=== PATIENT | female | born 1995 | race Two or more races ===

== ENCOUNTER 2019-06-27 12:13 | Emergency (ER) | payer MEDICAID, OTHER ==
[~2019-06-27] VITALS: Ht 160 cm; Wt 109.0 kg
[2019-06-27 12:17] VITALS: BP 116/58
--- NOTE | 2019-06-27 12:22 | NUR ---
PT HERE FOR LEFT HAND PAIN AROUND THUMB. PT REPORTS THAT SHE LIFTED UP HER DAUGHTER AND THEN THE PAIN STARTED. PT BIB EMS. VSS.
--- NOTE | 2019-06-27 12:40 | NUR ---
PT ABLE TO USE RIGHT HAND WITHOUT DIFFICULTY TO USE CELLPHONE.
--- NOTE | 2019-06-27 13:03 | NUR ---
PT PORVIDED WITH WARM BLANKET.
--- NOTE | 2019-06-27 13:09 | NUR ---
Patient/Caregiver given discharge instructions and they have confirmed that they understand the instructions. Patient ambulatory with steady gait.
== END 2019-06-27 13:21 ==
LOC: ED 13:15
DX: S63.641A Sprain of metacarpophalangeal joint of right thumb, initial encounter (principal); X58.XXXA Exposure to other specified factors, initial encounter; Y93.89 Activity, other specified; Y92.098 Other place in other non-institutional residence as the place of occurrence of the external cause; Y99.8 Other external cause status
CPT/HCPCS: 29125; 99283

== ENCOUNTER 2019-06-27 12:14 | Emergency (ER) | payer SELFPAY | END 2019-06-27 12:17 | disposition left against medical advice (07) | LOC: ED 12:15 | DX: M79.641 Pain in right hand (principal); Z53.21 Procedure and treatment not carried out due to patient leaving prior to being seen by health care provider ==

== ENCOUNTER 2019-07-03 17:33 | Emergency (ER) | payer SELFPAY ==
[2019-07-03 17:47] VITALS: BP 112/73
--- NOTE | 2019-07-03 17:52 | NUR ---
PT BELONGINGS (1 BAG) COLLECTED AND PLACED IN LOCKER. ROOM SECURE. PT ON FREQUENT MONITORING. PT SLEEPING AT THIS TIME, AFTER B52 AT THE HALFWAY. PT ANSWERED YES OR NO QUESTIONS, BUT DID NOT ANSWER SUICIDE QUESTIONS AT THIS TIME. PT ON SUICIDE WATCH AT HALFWAY.
--- NOTE | 2019-07-03 18:02 | NUR ---
PT IN DIRECT EYE LINE OF ANTONIOTER.
--- NOTE | 2019-07-03 18:24 | NUR ---
STATES PT IS NOT SUICIDAL, THAT SHE IS COMING OFF METH. OK TO RETURN BELONGINGS BACK TO PT.
--- NOTE | 2019-07-03 19:00 | NUR ---
PT GIVEN DC PAPERWORK HOWEVER REMAINS SLEEPY. PT INFORMED TO CALL FAMILY OR FRIEND FOR A RIDE HOME.
== END 2019-07-03 19:52 ==
LOC: ED 19:45
DX: F15.14 Other stimulant abuse with stimulant-induced mood disorder (principal); F17.200 Nicotine dependence, unspecified, uncomplicated; Z72.89 Other problems related to lifestyle
CPT/HCPCS: 99283

== ENCOUNTER 2019-11-25 10:35 | Emergency (ER) | payer MEDICAID ==
[~2019-11-25] VITALS: Ht 167.6 cm; Wt 90.0 kg
--- NOTE | 2019-11-25 10:45 | NUR ---
bib ems for neighbor calling on pt related to yelling. pt has hx of schizophrenia, not on meds at this time. goes to [facility]. pt has pressure speech, will yell at staff then apoligize. denies drug use except cannabis. hx of hiv. denies si/sa/hi
[2019-11-25 10:47] VITALS: BP 113/85
[2019-11-25 11:39] LABS: BASOPHILS # (AUTO) 0.05 x10^3/uL (0-0.1); BASOPHILS % (AUTO) 1 % (0-1); EOSINOPHILS # (AUTO) 0.12 x10^3/uL (0-0.4); EOSINOPHILS % (AUTO) 1 % (1-7); LYMPHOCYTES # (AUTO) 3.73 x10^3/uL (1-3.4); LYMPHOCYTES % (AUTO) 38 % (22-44); MD NO; MEAN CORPUSCULAR HEMOGLOBIN 29.7 pg (27.0-34.8); MEAN CORPUSCULAR HGB CONC 33.2 g/dL (32.4-35.8); MEAN CORPUSCULAR VOLUME 89.5 fL (80-100); MEAN PLATELET VOLUME 7.5 fL (7.4-10.4); MONOCYTES # (AUTO) 0.37 x10^3/uL (0.2-0.8); MONOCYTES % (AUTO) 4 % (2-9); NEUTROPHILS # (AUTO) 5.66 x10^3/uL (1.8-6.8); NEUTROPHILS % (AUTO) 57 % (42-75); PLATELET COUNT 403 x10^3/uL (130-400); RED BLOOD COUNT 4.41 x10^6/uL (3.82-5.3); RED CELL DISTRIBUTION WIDTH 14.9 % (9.6-15.2)
--- NOTE | 2019-11-25 11:39 | NUR ---
PT DEMANDING TO LEAVE, AWARE, AMA FORM SIGNED
[2019-11-25 12:06] LABS: ALBUMIN 3.7 g/dL (3.4-5.0); ANION GAP 7 mmol/L (5-15); CALCIUM 8.4 mg/dL (8.5-10.1); CHLORIDE 113 mmol/L (98-107); CREATININE 0.76 mg/dL (0.55-1.02)
[2019-11-25 12:10] LABS: T4 (THYROXINE) 10.1 mcg/dL (4.8-13.9)
[2019-11-25 12:12] LABS: SALICYLATE LEVEL < 1.7 mg/dL (2.8-20.0)
== END 2019-11-25 11:43 | disposition left against medical advice (07) ==
LOC: ED 10:48
DX: F41.9 Anxiety disorder, unspecified (principal); F22 Delusional disorders
CPT/HCPCS: 36415; 80048; 80307; 82040; 84436; 84443; 84703; 85025; 93005; 99284

== ENCOUNTER 2019-11-27 10:21 | Emergency (ER) | payer MEDICAID ==
[~2019-11-27] VITALS: Ht 160 cm; Wt 97.1 kg
[2019-11-27 10:30] VITALS: BP 134/104
[2019-11-27] MEDS ORDERED: BIKTARVY (10:38)
--- NOTE | 2019-11-27 10:52 | NUR ---
FORMER HAND: AMBULATORY WITH STEADY GAIT TO ROOM AT THIS TIME. NILSA
--- NOTE | 2019-11-27 11:24 | NUR ---
[facility] PT INSTRUCTED TO REMAIN IN ROOM AND AWAIT RN RETURN WITH BUS PASS (REQUESTED BY PATIENT) AND DC INSRUCTIONS WITH MENTAL HEALTH REFERRALS. WHEN RN RETURNED TO ROOM, PT HAD LEFT. PT NOT FOUND IN ED. PRIOR TO DC PT WAS A&O, RESPS EVEN AND UNLABORED, AND ABLE TO AMBULATE INDEPENDENTLY WITH STEADY GAIT.
== END 2019-11-27 11:25 | disposition home or self-care (01) ==
LOC: ED 10:59
DX: F25.0 Schizoaffective disorder, bipolar type (principal)
CPT/HCPCS: 99283

== ENCOUNTER 2020-01-31 04:08 | Emergency (ER) | payer MEDICAID ==
[~2020-01-31 04:08] MED LIST: BIKTARVY
--- NOTE | 2020-01-31 04:12 | NUR ---
[employer] RELATIONS OFFICER: PT. WAS BIB [facility] FOR C/O ANXIETY. UPON ARRIVAL TO ED PT. WAS ASKED BY FAY DILLARD TO WEAR MASK; PT. BECAME VERBALLY AGRESSIVE TO STAFF SHOUTING "FUCK YOU BITCH, I DON'T NEED NO MASK BITCH". "COVID IS OVER BITCH". PT. AMBULATORY OUT OF ED WITH STEADY GAIT; SHOUTING THE ENTIRE WAY OUT.
--- NOTE | 2020-01-31 04:13 | NUR ---
PT ELOPED, CUSSING ON WAY OUT.
== END 2020-01-31 04:14 ==
LOC: ED 04:09
DX: F41.9 Anxiety disorder, unspecified (principal); Z53.21 Procedure and treatment not carried out due to patient leaving prior to being seen by health care provider